=== PATIENT | male | born 1930 | race Caucasian/White ===

== ENCOUNTER 2016-12-02 14:08 | Inpatient (IN) | payer OTHER, MEDICARE ==
[~2016-12-02] VITALS: Ht 188 cm; Wt 98.2 kg
[~2016-12-02 14:08] MED LIST: COUMADIN10 MG PO; Colace PO; Coumadin,Jantoven PO; LOVENOX100 MG/1 M SC; Norvasc PO; Oscal 500 w/Vitamin PO; PERCOCET 5/31 TABLET PO; Percocet 5/325,Endoc PO; TYLENOL REGULA325 MG PO; Theragran PO; Tylenol Regular Stre PO
[2016-12-02 14:55] LABS: EOSINOPHIL (%) 0.3 % (0-5); HEMATOCRIT 44.1 % (38.0-50.0); IMMATURE GRANULOCYTE (%) 0.1 % (0.0-0.7); INSTRUMENT ABS NEUTROPHIL CT 7.3 K/uL; LYMPHOCYTE COUNT 0.4 K/uL (1.0-2.8); MCH 30.3 PG (29.0-34.0); MCHC 33.8 G/DL (30.0-36.0); MCV 89.6 FL (86-99); MEAN PLAT.VOLUME 8.7 uM^3 (9.0-12.4); MONOCYTE (%) 1.2 % (3-12); MONOCYTE COUNT 0.1 K/uL (0-0.8); NEUTROPHIL (%) 93.6 % (45-76); NEUTROPHIL COUNT 7.3 K/uL (1.8-6.4); PLATELET COUNT 137 K/uL (156-360); RBC DIS.WIDTH-CV 13.6 % (11.8-14.6); RBC DIS.WIDTH-SD 44.7 % (39-53); RED BLOOD COUNT 4.92 M/uL (4.00-5.50); WHITE BLOOD COUNT 7.7 K/uL (4.1-10.2)
[2016-12-02 14:59] LABS: INTER. NORMALIZED RATIO 1.1; PROTHROMBIN TIME 11.8 SEC (10.2-12.9)
[2016-12-02 15:02] LABS: PTT 24.3 SEC (25-37)
[2016-12-02 15:11] LABS: CHLORIDE 108 mEq/L (99-109); POTASSIUM 4.1 mEq/L (3.7-5.4); SODIUM 140 mEq/L (136-147)
[2016-12-02 15:12] LABS: MAGNESIUM 1.6 mg/dL (1.3-2.7)
[2016-12-02 15:14] LABS: GLUCOSE 107 mg/dL (70-99)
[2016-12-02 15:15] LABS: ANION GAP 15 MEQ/L (2-14)
[2016-12-02 15:16] LABS: TOTAL BILIRUBIN 0.9 mg/dL (0.0-1.0)
[2016-12-02 15:17] LABS: ALKALINE PHOSPHATASE 74 IU/L (3-129); SERUM ETHYL ALCOHOL < 10 mg/dL
[2016-12-02 15:18] LABS: GFR ESTIMATE (CALCULATED) 56 mL/min/; TROP-I INTERPRETATION NEGATIVE; TROPONIN-I 0.02 ng/mL (0.0-0.30)
[2016-12-02 15:19] LABS: UREA NITROGEN (BUN) 24 mg/dL (9-23)
[2016-12-02 15:21] LABS: CREATINE KINASE 57 IU/L (1-294); TOTAL CK 57 IU/L (1-294)
[2016-12-02 15:26] LABS: CK-MB 0.8 ng/mL (0.0-4.9)
[2016-12-02 18:03] LABS: TROP-I INTERPRETATION NEGATIVE; TROPONIN-I 0.04 ng/mL (0.0-0.30)
[2016-12-02 18:08] LABS: ADD MIUA? YES; BILIRUBIN NEGATIVE; BLOOD MODERATE; COLOR YELLOW ((YELLOW)); GLUCOSE (STRIP) NEGATIVE; KETONES NEGATIVE; LEUKOCYTES LARGE; NITRITE POSITIVE; PROTEIN (STRIP) 30; SPECIFIC GRAVITY 1.024 (1.000-1.030); UROBILINOGEN 0.2 MG/DL (0.2-1.0)
[2016-12-02 18:44] LABS: BACTERIA 3+ /HPF; EPITHELIAL CELLS RARE /HPF; HYALINE CASTS 0-5 /LPF; MUCUS 2+ /LPF; UCUL ADDED? YES; WHITE BLOOD CELLS TNTC /HPF (0-5)
[2016-12-02] MEDS ORDERED: ADVIL200 MG PO (19:34)
[2016-12-02] MEDS ORDERED: PERCOCET 10/1 TABLET PO (19:34)
[2016-12-03 00:26] VITALS: BP 134/59
[2016-12-03 04:20] VITALS: BP 106/55
[2016-12-03 05:49] LABS: HEMATOCRIT 35.1 % (38.0-50.0); MCH 30.7 PG (29.0-34.0); MCHC 33.3 G/DL (30.0-36.0); MCV 92.1 FL (86-99); MEAN PLAT.VOLUME 9.2 uM^3 (9.0-12.4); PLATELET COUNT 108 K/uL (156-360); RBC DIS.WIDTH-CV 14.2 % (11.8-14.6); RBC DIS.WIDTH-SD 47.8 % (39-53); WHITE BLOOD COUNT 15.3 K/uL (4.1-10.2)
[2016-12-03 05:52] LABS: RED BLOOD COUNT 3.81 M/uL (4.00-5.50)
[2016-12-03 05:56] LABS: ANION GAP 6 MEQ/L (2-14); CHLORIDE 107 MEQ/L (99-109); GFR ESTIMATE (CALCULATED) 51 mL/min/; GLUCOSE 110 mg/dL (70-99); POTASSIUM 4.2 MEQ/L (3.7-5.4); SAMPLE HEMOLYSIS CHECK 0; SAMPLE ICTERIC CHECK 0; SAMPLE LIPEMIA CHECK 0; SODIUM 137 MEQ/L (136-147); UREA NITROGEN (BUN) 31 mg/dL (9-23)
[2016-12-03 08:41] VITALS: BP 126/58
[2016-12-03 16:36] VITALS: BP 127/84
[2016-12-03 20:47] VITALS: BP 130/60
[2016-12-03 23:35] VITALS: BP 108/56
[2016-12-04 03:32] VITALS: BP 111/51
[2016-12-04 05:12] LABS: HEMATOCRIT 35.7 % (38.0-50.0); MCH 29.9 PG (29.0-34.0); MCHC 32.2 G/DL (30.0-36.0); MCV 92.7 FL (86-99); MEAN PLAT.VOLUME 9.3 uM^3 (9.0-12.4); PLATELET COUNT 102 K/uL (156-360); RBC DIS.WIDTH-CV 14.3 % (11.8-14.6); RBC DIS.WIDTH-SD 48.4 % (39-53); RED BLOOD COUNT 3.85 M/uL (4.00-5.50); WHITE BLOOD COUNT 12.3 K/uL (4.1-10.2)
[2016-12-04 05:35] LABS: ALKALINE PHOSPHATASE 61 IU/L (3-129); ANION GAP 6 MEQ/L (2-14); CHLORIDE 106 MEQ/L (99-109); GFR ESTIMATE (CALCULATED) 56 mL/min/; GLUCOSE 95 mg/dL (70-99); POTASSIUM 3.8 MEQ/L (3.7-5.4); SAMPLE HEMOLYSIS CHECK 0; SAMPLE ICTERIC CHECK 0; SAMPLE LIPEMIA CHECK 0; SODIUM 136 MEQ/L (136-147); TOTAL BILIRUBIN 0.4 MG/DL (0.0-1.0); UREA NITROGEN (BUN) 25 mg/dL (9-23)
[2016-12-04 05:45] LABS: ABS NEUTROPHIL COUNT 9.9; BAND NEUTROPHILS 6.1 % (0-8.0); BURR CELLS 1+; EOSINOPHIL ABS CT 0.4; EOSINOPHILS 3.5 % (0-5.0); INSTRUMENT ABS NEUTROPHIL CT 10.1 K/uL; LYMPHOCYTES 9.6 % (15.0-45.0); METAMYELOCYTES 0.9 %; PLAT.SUFFICIENCY DECREASED; SEG.NEUTROPHILS 74.6 % (46.0-76.0)
[2016-12-04 07:40] VITALS: BP 140/69
[2016-12-04 10:50] VITALS: BP 161/79
[2016-12-04 16:09] VITALS: BP 194/82
[2016-12-04 19:57] VITALS: BP 143/61
[2016-12-04 23:30] VITALS: BP 103/53
[2016-12-05 03:47] VITALS: BP 176/81
[2016-12-05 05:11] LABS: EOSINOPHIL (%) 4.2 % (0-5); EOSINOPHIL COUNT 0.4 K/uL (0-0.3); HEMATOCRIT 34.6 % (38.0-50.0); IMMATURE GRANULOCYTE (%) 0.4 % (0.0-0.7); INSTRUMENT ABS NEUTROPHIL CT 6.6 K/uL; LYMPHOCYTE COUNT 0.9 K/uL (1.0-2.8); MCH 30.2 PG (29.0-34.0); MCHC 32.7 G/DL (30.0-36.0); MCV 92.5 FL (86-99); MEAN PLAT.VOLUME 9.1 uM^3 (9.0-12.4); MONOCYTE (%) 6.2 % (3-12); MONOCYTE COUNT 0.5 K/uL (0-0.8); NEUTROPHIL (%) 78.5 % (45-76); NEUTROPHIL COUNT 6.6 K/uL (1.8-6.4); PLATELET COUNT 101 K/uL (156-360); RBC DIS.WIDTH-CV 14.3 % (11.8-14.6); RBC DIS.WIDTH-SD 48.3 % (39-53); RED BLOOD COUNT 3.74 M/uL (4.00-5.50); WHITE BLOOD COUNT 8.4 K/uL (4.1-10.2)
[2016-12-05 05:36] LABS: ANION GAP 4 MEQ/L (2-14); CHLORIDE 108 MEQ/L (99-109); GFR ESTIMATE (CALCULATED) > 59 mL/min/; GLUCOSE 102 mg/dL (70-99); POTASSIUM 4.5 MEQ/L (3.7-5.4); SAMPLE HEMOLYSIS CHECK 0; SAMPLE ICTERIC CHECK 0; SAMPLE LIPEMIA CHECK 0; SODIUM 137 MEQ/L (136-147); UREA NITROGEN (BUN) 16 mg/dL (9-23)
[2016-12-05 07:33] VITALS: BP 113/68
[2016-12-05 10:44] VITALS: BP 104/56
[2016-12-05 15:34] VITALS: BP 148/66
[2016-12-05] MEDS ORDERED: SEPTRA DS TABL1 EACH PO (17:55)
[2016-12-05] MEDS ORDERED: AMLODIPINE BESYL5 MG PO (17:59)
== END 2016-12-05 19:14 | disposition home or self-care (01) | DRG 690 ==
LOC: EME 14:08 → 5WEST 20:19 → EDOF 20:19 → ENRESERV 20:27 → 5WEST 23:55 → CANRESERV 12-03 14:43 → ENRESERV 12-03 14:43 → 5WEST 12-03 17:05
PROVIDERS: Emergency Medicine; Hospitalist; Internal Medicine
DX: N39.0 Urinary tract infection, site not specified (principal); N17.9 Acute kidney failure, unspecified; T82.855A Stenosis of coronary artery stent, initial encounter; J98.11 Atelectasis; E87.2 Acidosis; M48.54XA Collapsed vertebra, not elsewhere classified, thoracic region, initial encounter for fracture; R32 Unspecified urinary incontinence; N40.0 Benign prostatic hyperplasia without lower urinary tract symptoms; D69.6 Thrombocytopenia, unspecified; E78.5 Hyperlipidemia, unspecified; G89.29 Other chronic pain; I10 Essential (primary) hypertension; R29.810 Facial weakness; R79.1 Abnormal coagulation profile; E86.0 Dehydration; N20.0 Calculus of kidney; J98.4 Other disorders of lung; D64.9 Anemia, unspecified; M51.9 Unspecified thoracic, thoracolumbar and lumbosacral intervertebral disc disorder; Z86.711 Personal history of pulmonary embolism; Z79.01 Long term (current) use of anticoagulants; Z86.73 Personal history of transient ischemic attack (TIA), and cerebral infarction without residual deficits; Z87.11 Personal history of peptic ulcer disease
CPT/HCPCS: 70450; 71010; 74176; 78580; 80048; 80053; 81003; 82550; 82553; 83605; 83735; 84484; 85025; 85027; 85379; 85610; 85730; 87040; 87077; 87086; 87186; 90686; 93005; 99202; 99281; 99285; A9540; G0378; G0480; J0696; J0744; J2405; J7030; J7050

== ENCOUNTER 2016-12-27 22:27 | Inpatient (IN) | payer OTHER, MEDICARE ==
[~2016-12-27] VITALS: Ht 190.5 cm; Wt 98.8 kg
[~2016-12-27 22:27] MED LIST changes: +ADVIL200 MG PO; +AMLODIPINE BESYL5 MG PO; +PERCOCET 10/1 TABLET PO; +SEPTRA DS TABL1 EACH PO
[2016-12-27 23:14] LABS: EOSINOPHIL (%) 0.1 % (0-5); HEMATOCRIT 40.5 % (38.0-50.0); IMMATURE GRANULOCYTE (%) 0.3 % (0.0-0.7); INSTRUMENT ABS NEUTROPHIL CT 6.9 K/uL; LYMPHOCYTE COUNT 0.8 K/uL (1.0-2.8); MCH 29.6 PG (29.0-34.0); MCHC 33.1 G/DL (30.0-36.0); MCV 89.4 FL (86-99); MEAN PLAT.VOLUME 8.7 uM^3 (9.0-12.4); MONOCYTE (%) 12.4 % (3-12); MONOCYTE COUNT 1.1 K/uL (0-0.8); NEUTROPHIL (%) 77.4 % (45-76); NEUTROPHIL COUNT 6.9 K/uL (1.8-6.4); PLATELET COUNT 158 K/uL (156-360); RBC DIS.WIDTH-CV 13.4 % (11.8-14.6); RBC DIS.WIDTH-SD 44.2 % (39-53); RED BLOOD COUNT 4.53 M/uL (4.00-5.50); WHITE BLOOD COUNT 8.9 K/uL (4.1-10.2)
[2016-12-27 23:22] LABS: CHLORIDE 101 mEq/L (99-109); POTASSIUM 3.6 mEq/L (3.7-5.4); SODIUM 136 mEq/L (136-147)
[2016-12-27 23:25] LABS: GLUCOSE 130 mg/dL (70-99)
[2016-12-27 23:26] LABS: ANION GAP 11 MEQ/L (2-14); TOTAL BILIRUBIN 0.9 mg/dL (0.0-1.0)
[2016-12-27 23:28] LABS: ALKALINE PHOSPHATASE 74 IU/L (3-129); GFR ESTIMATE (CALCULATED) 51 mL/min/
[2016-12-27 23:29] LABS: UREA NITROGEN (BUN) 20 mg/dL (9-23)
[2016-12-27 23:30] LABS: INTER. NORMALIZED RATIO 1.2; PROTHROMBIN TIME 13.1 SEC (10.2-12.9)
[2016-12-27 23:32] LABS: CREATINE KINASE 341 IU/L (1-294); LIPASE 7 U/L (1.0-51.0)
[2016-12-27 23:33] LABS: PTT 26.7 SEC (25-37)
[2016-12-27 23:34] LABS: TROP-I INTERPRETATION NEGATIVE; TROPONIN-I 0.04 ng/mL (0.0-0.30)
[2016-12-28 00:05] LABS: SERUM ETHYL ALCOHOL < 10 mg/dL
[2016-12-28] MEDS ORDERED: AMLODIPINE BESYL5 MG PO (01:12)
[2016-12-28] MEDS ORDERED: OXYCODONE HCL10 MG PO (01:13)
[2016-12-28] MEDS ORDERED: FLOMAX0.4 MG PO (01:13)
[2016-12-28] MEDS ORDERED: AMITRIPTYLINE H25 MG PO (01:13)
[2016-12-28] MEDS ORDERED: SUPER MULTIVIT1 EACH PO (01:13)
[2016-12-28] MEDS ORDERED: ASPIR 8181 M1 PO (01:13)
[2016-12-28 03:19] VITALS: BP 131/60
[2016-12-28 07:08] LABS: TROP-I INTERPRETATION NEGATIVE; TROPONIN-I 0.05 ng/mL (0.0-0.30)
[2016-12-28 08:08] VITALS: BP 133/62
[2016-12-28 11:37] VITALS: BP 134/62
[2016-12-28 14:52] LABS: EOSINOPHIL (%) 0.1 % (0-5); IMMATURE GRANULOCYTE (%) 0.4 % (0.0-0.7); IMMATURE GRANULOCYTE COUNT 0.1 K/uL; INSTRUMENT ABS NEUTROPHIL CT 10.2 K/uL; LYMPHOCYTE COUNT 0.6 K/uL (1.0-2.8); MCH 30.2 PG (29.0-34.0); MCHC 33.3 G/DL (30.0-36.0); MCV 90.5 FL (86-99); MEAN PLAT.VOLUME 8.8 uM^3 (9.0-12.4); MONOCYTE (%) 9.4 % (3-12); MONOCYTE COUNT 1.1 K/uL (0-0.8); NEUTROPHIL (%) 85.1 % (45-76); NEUTROPHIL COUNT 10.2 K/uL (1.8-6.4); PLATELET COUNT 142 K/uL (156-360); RBC DIS.WIDTH-CV 13.5 % (11.8-14.6); RBC DIS.WIDTH-SD 44.7 % (39-53); RED BLOOD COUNT 3.98 M/uL (4.00-5.50)
[2016-12-28 15:12] LABS: TROP-I INTERPRETATION NEGATIVE; TROPONIN-I 0.16 ng/mL (0.0-0.30)
[2016-12-28 15:50] VITALS: BP 124/62
[2016-12-28 19:28] VITALS: BP 150/70
[2016-12-28 23:31] VITALS: BP 119/56
[2016-12-29 04:06] VITALS: BP 116/56
[2016-12-29 07:59] VITALS: BP 151/71
[2016-12-29 12:09] VITALS: BP 116/58
[2016-12-29 15:57] VITALS: BP 116/55
[2016-12-29 19:25] VITALS: BP 108/59
[2016-12-29 23:41] VITALS: BP 114/61
[2016-12-30 03:12] VITALS: BP 134/78
[2016-12-30 07:12] LABS: EOSINOPHIL COUNT 0.1 K/uL (0-0.3); HEMATOCRIT 33.6 % (38.0-50.0); IMMATURE GRANULOCYTE (%) 0.5 % (0.0-0.7); IMMATURE GRANULOCYTE COUNT 0.1 K/uL; INSTRUMENT ABS NEUTROPHIL CT 7.7 K/uL; LYMPHOCYTE COUNT 0.6 K/uL (1.0-2.8); MCHC 33.6 G/DL (30.0-36.0); MCV 89.1 FL (86-99); MEAN PLAT.VOLUME 9.4 uM^3 (9.0-12.4); MONOCYTE (%) 7.8 % (3-12); MONOCYTE COUNT 0.7 K/uL (0-0.8); NEUTROPHIL (%) 83.5 % (45-76); NEUTROPHIL COUNT 7.7 K/uL (1.8-6.4); PLATELET COUNT 140 K/uL (156-360); RBC DIS.WIDTH-CV 13.2 % (11.8-14.6); RBC DIS.WIDTH-SD 43.4 % (39-53); RED BLOOD COUNT 3.77 M/uL (4.00-5.50); WHITE BLOOD COUNT 9.2 K/uL (4.1-10.2)
[2016-12-30 07:46] LABS: ALKALINE PHOSPHATASE 64 IU/L (3-129); ANION GAP 10 MEQ/L (2-14); CHLORIDE 102 MEQ/L (99-109); GFR ESTIMATE (CALCULATED) > 59 mL/min/; GLUCOSE 101 mg/dL (70-99); POTASSIUM 3.8 MEQ/L (3.7-5.4); SAMPLE HEMOLYSIS CHECK 0; SAMPLE ICTERIC CHECK 0; SAMPLE LIPEMIA CHECK 0; SODIUM 133 MEQ/L (136-147); TOTAL BILIRUBIN 0.8 MG/DL (0.0-1.0); UREA NITROGEN (BUN) 20 mg/dL (9-23)
[2016-12-30 08:36] VITALS: BP 119/68
[2016-12-30 12:12] VITALS: BP 134/63
[2016-12-30 18:38] LABS: ADD MIUA? YES; BILIRUBIN NEGATIVE; BLOOD LARGE; COLOR AMBER ((YELLOW)); GLUCOSE (STRIP) NEGATIVE; KETONES NEGATIVE; LEUKOCYTES NEGATIVE; NITRITE NEGATIVE; PROTEIN (STRIP) 100; SPECIFIC GRAVITY 1.021 (1.000-1.030)
[2016-12-30 19:05] LABS: RED BLOOD CELLS TNTC /HPF (0-5)
[2016-12-30 19:06] LABS: BACTERIA 1+ /HPF; CASTS NONE SEEN /LPF; CRYSTALS NONE SEEN; EPITHELIAL CELLS RARE /HPF; MUCUS NONE SEEN /LPF
[2016-12-31 08:05] VITALS: BP 120/71
[2016-12-31 11:57] VITALS: BP 126/68
[2016-12-31 23:16] VITALS: BP 128/76
[2017-01-01 08:05] VITALS: BP 129/77
[2017-01-01 10:15] LABS: HEMATOCRIT 36.5 % (38.0-50.0); MCH 29.9 PG (29.0-34.0); PLATELET COUNT 181 K/uL (156-360); RBC DIS.WIDTH-CV 13.6 % (11.8-14.6); RBC DIS.WIDTH-SD 43.8 % (39-53); RED BLOOD COUNT 4.15 M/uL (4.00-5.50); WHITE BLOOD COUNT 6.2 K/uL (4.1-10.2)
[2017-01-01 10:53] LABS: ANION GAP 10 MEQ/L (2-14); CHLORIDE 102 MEQ/L (99-109); GFR ESTIMATE (CALCULATED) > 59 mL/min/; GLUCOSE 114 mg/dL (70-99); POTASSIUM 4.3 MEQ/L (3.7-5.4); SAMPLE HEMOLYSIS CHECK 0; SAMPLE ICTERIC CHECK 0; SAMPLE LIPEMIA CHECK 0; SODIUM 135 MEQ/L (136-147); UREA NITROGEN (BUN) 24 mg/dL (9-23)
[2017-01-01 15:52] VITALS: BP 133/76
[2017-01-01 23:59] VITALS: BP 135/70
[2017-01-02 08:18] VITALS: BP 137/79
[2017-01-02 16:03] VITALS: BP 141/79
[2017-01-03 00:33] VITALS: BP 126/68
[2017-01-03 07:25] VITALS: BP 123/70
[2017-01-03 11:14] VITALS: BP 152/71
[2017-01-03 15:47] VITALS: BP 145/43
[2017-01-03 23:38] VITALS: BP 129/66
[2017-01-04 06:20] LABS: HEMATOCRIT 34.5 % (38.0-50.0); MCH 29.4 PG (29.0-34.0); MCHC 33.6 G/DL (30.0-36.0); MCV 87.6 FL (86-99); MEAN PLAT.VOLUME 9.3 uM^3 (9.0-12.4); RBC DIS.WIDTH-CV 13.7 % (11.8-14.6); RBC DIS.WIDTH-SD 43.8 % (39-53); RED BLOOD COUNT 3.94 M/uL (4.00-5.50); WHITE BLOOD COUNT 8.3 K/uL (4.1-10.2)
[2017-01-04 06:28] LABS: PLATELET COUNT 274 K/uL (156-360)
[2017-01-04 06:47] LABS: ALKALINE PHOSPHATASE 75 IU/L (3-129); ANION GAP 12 MEQ/L (2-14); CHLORIDE 104 MEQ/L (99-109); GFR ESTIMATE (CALCULATED) > 59 mL/min/; GLUCOSE 103 mg/dL (70-99); POTASSIUM 4.5 MEQ/L (3.7-5.4); SAMPLE HEMOLYSIS CHECK 0; SAMPLE ICTERIC CHECK 0; SAMPLE LIPEMIA CHECK 0; SODIUM 137 MEQ/L (136-147); UREA NITROGEN (BUN) 26 mg/dL (9-23)
[2017-01-04 06:48] LABS: ABS NEUTROPHIL COUNT 6.7; EOSINOPHIL ABS CT 0.3; EOSINOPHILS 3.5 % (0-5.0); INSTRUMENT ABS NEUTROPHIL CT 6.1 K/uL; LYMPHOCYTES 5.2 % (15.0-45.0); MYELOCYTES 0.9 %; SEG.NEUTROPHILS 80.9 % (46.0-76.0); SMUDGE CELLS 2.6; TOTAL BILIRUBIN 0.5 MG/DL (0.0-1.0)
[2017-01-04 07:02] LABS: ADD MIUA? YES; BILIRUBIN NEGATIVE; BLOOD LARGE; COLOR YELLOW ((YELLOW)); GLUCOSE (STRIP) NEGATIVE; KETONES NEGATIVE; LEUKOCYTES NEGATIVE; NITRITE NEGATIVE; PROTEIN (STRIP) NEGATIVE; SPECIFIC GRAVITY 1.018 (1.000-1.030); UROBILINOGEN 0.2 MG/DL (0.2-1.0)
[2017-01-04 07:08] LABS: BACTERIA NONE SEEN /HPF; EPITHELIAL CELLS RARE /HPF; MUCUS TRACE /LPF; WHITE BLOOD CELLS 0-5 /HPF (0-5)
[2017-01-04 08:19] VITALS: BP 138/74
[2017-01-04 15:15] VITALS: BP 147/76
[2017-01-04 23:29] VITALS: BP 118/53
[2017-01-04 23:38] VITALS: BP 130/70
[2017-01-05 07:36] VITALS: BP 132/66
[2017-01-05] MEDS ORDERED: DOCUSATE SODIU100 MG PO (15:07)
[2017-01-05] MEDS ORDERED: FINASTERIDE5 MG PO (15:07)
[2017-01-05] MEDS ORDERED: Milk Of Magnesia,MOM PO (15:07)
[2017-01-05] MEDS ORDERED: PANTOPRAZOLE SO40 MG PO (15:07)
[2017-01-05] MEDS ORDERED: BISAC-EVAC10 MG PR (15:08)
[2017-01-05 15:18] VITALS: BP 136/67
== END 2017-01-05 16:16 | DRG 193 ==
LOC: EME → EDBD 22:27 → 3EAST 12-28 00:56 → EDOF 12-28 00:56 → ENRESERV 12-28 01:30 → 3EAST 12-28 03:03
PROVIDERS: Emergency Medicine; Internal Medicine
DX: J18.9 Pneumonia, unspecified organism (principal); G93.41 Metabolic encephalopathy; N39.0 Urinary tract infection, site not specified; T50.905A Adverse effect of unspecified drugs, medicaments and biological substances, initial encounter; J06.9 Acute upper respiratory infection, unspecified; N17.9 Acute kidney failure, unspecified; G31.84 Mild cognitive impairment of uncertain or unknown etiology; E87.6 Hypokalemia; J84.10 Pulmonary fibrosis, unspecified; I10 Essential (primary) hypertension; M51.9 Unspecified thoracic, thoracolumbar and lumbosacral intervertebral disc disorder; E78.5 Hyperlipidemia, unspecified; N40.0 Benign prostatic hyperplasia without lower urinary tract symptoms; M51.44 Schmorl's nodes, thoracic region; D69.6 Thrombocytopenia, unspecified; E86.0 Dehydration; W01.0XXA Fall on same level from slipping, tripping and stumbling without subsequent striking against object, initial encounter; R09.02 Hypoxemia; G89.29 Other chronic pain; R31.0 Gross hematuria; N20.0 Calculus of kidney; N39.41 Urge incontinence; R29.6 Repeated falls; I44.7 Left bundle-branch block, unspecified; Z87.11 Personal history of peptic ulcer disease; Z86.73 Personal history of transient ischemic attack (TIA), and cerebral infarction without residual deficits; Z86.711 Personal history of pulmonary embolism; Z87.440 Personal history of urinary (tract) infections; Z79.82 Long term (current) use of aspirin; Z87.891 Personal history of nicotine dependence
CPT/HCPCS: 70450; 70551; 71010; 71020; 72125; 72131; 72192; 73030; 73502; 80048; 80053; 81003; 82140; 82550; 83690; 83880; 84484; 85025; 85027; 85610; 85730; 86850; 86900; 86901; 87040; 87086; 93005; 94640; 94799; 97530 GP; 99202; 99281; 99285; G0480; J0696; J1644; J2060; J2270; J2405; J7030; J7050

== ENCOUNTER 2017-03-23 20:36 | Emergency (ER) | payer OTHER ==
[~2017-03-23] VITALS: Ht 193 cm; Wt 80.9 kg
[~2017-03-23 20:36] MED LIST changes: +AMITRIPTYLINE H25 MG PO; +ASPIR 8181 M1 PO; +BISAC-EVAC10 MG PR; +DOCUSATE SODIU100 MG PO; +FINASTERIDE5 MG PO; +FLOMAX0.4 MG PO; +Milk Of Magnesia,MOM PO; +OXYCODONE HCL10 MG PO; +PANTOPRAZOLE SO40 MG PO; +SUPER MULTIVIT1 EACH PO
[2017-03-23 21:59] LABS: APPEARANCE SL.HAZY ((CLEAR)); BILIRUBIN NEGATIVE; BLOOD NEGATIVE; COLOR YELLOW ((YELLOW)); GLUCOSE (STRIP) NEGATIVE; KETONES NEGATIVE; LEUKOCYTES NEGATIVE; NITRITE NEGATIVE; PROTEIN (STRIP) NEGATIVE; SPECIFIC GRAVITY 1.015 (1.000-1.030); UROBILINOGEN 0.2 MG/DL (0.2-1.0)
[2017-03-23 22:09] LABS: BASOPHIL (%) 0.3 % (0-1); EOSINOPHIL (%) 1.2 % (0-5); EOSINOPHIL COUNT 0.1 K/uL (0-0.3); HEMOGLOBIN 11.6 G/DL (12.5-16.6); IMMATURE GRANULOCYTE (%) 0.5 % (0.0-0.7); LYMPHOCYTE (%) 10.6 % (15-42); MCH 28.4 PG (29.0-34.0); MCHC 33.1 G/DL (30.0-36.0); MCV 85.8 FL (86-99); MONOCYTE (%) 7.9 % (3-12); MONOCYTE COUNT 0.8 K/uL (0-0.8); NEUTROPHIL (%) 79.5 % (45-76); NEUTROPHIL COUNT 7.8 K/uL (1.8-6.4); PLATELET COUNT 260 K/uL (156-360); RBC DIS.WIDTH-CV 14.5 % (11.8-14.6); RBC DIS.WIDTH-SD 45.5 % (39-53); RED BLOOD COUNT 4.08 M/uL (4.00-5.50); WHITE BLOOD COUNT 9.8 K/uL (4.1-10.2)
[2017-03-23 22:18] LABS: CHLORIDE 99 mEq/L (99-109); POTASSIUM 3.4 mEq/L (3.7-5.4); SODIUM 136 mEq/L (136-147)
[2017-03-23 22:20] LABS: GLUCOSE 114 mg/dL (70-99)
[2017-03-23 22:24] LABS: CREATININE 0.9 mg/dL (0.6-1.3); GFR ESTIMATE (CALCULATED) > 59 mL/min/ (58.99-99999)
[2017-03-23 22:25] LABS: UREA NITROGEN (BUN) 20 mg/dL (9-23)
[2017-03-23 22:56] LABS: BACTERIA RARE /HPF; EPITHELIAL CELLS RARE /HPF; HYALINE CASTS 30-40 /LPF; MUCUS 1+ /LPF; UCUL ADDED? NO; WHITE BLOOD CELLS 0-5 /HPF (0-5)
[2017-03-24 02:13] VITALS: BP 124/69
== END 2017-03-24 02:29 | disposition home or self-care (01) ==
LOC: EME 20:36
PROVIDERS: Emergency Medicine
DX: M54.5 Low back pain (principal); G89.29 Other chronic pain; M77.32 Calcaneal spur, left foot; I70.0 Atherosclerosis of aorta; R93.7 Abnormal findings on diagnostic imaging of other parts of musculoskeletal system; I10 Essential (primary) hypertension; I69.354 Hemiplegia and hemiparesis following cerebral infarction affecting left non-dominant side; Z79.82 Long term (current) use of aspirin; Z79.891 Long term (current) use of opiate analgesic; Z79.01 Long term (current) use of anticoagulants; Z87.891 Personal history of nicotine dependence; Z86.711 Personal history of pulmonary embolism
CPT/HCPCS: 72131; 73610; 80048; 81003; 85025; 99281; 99285